=== PATIENT | male | born 2005 | race Caucasian/White ===

== ENCOUNTER 2023-04-29 22:34 | Emergency (ER) | payer SELFPAY ==
[~2023-04-29] VITALS: Ht 175.3 cm; Wt 61.4 kg
[2023-04-29 22:47] VITALS: BP 146/78; PULSE 97; RESP 16; O2SAT 99
[2023-04-29] MEDS ORDERED: CEPH-585 PO (22:47)
== END 2023-04-29 22:55 ==
LOC: ER 22:35
DX: S01.112A Laceration without foreign body of left eyelid and periocular area, initial encounter (principal); X58.XXXA Exposure to other specified factors, initial encounter; Y93.89 Activity, other specified; Y92.89 Other specified places as the place of occurrence of the external cause; Y99.8 Other external cause status
CPT/HCPCS: 99283